=== PATIENT | male | born 1950 | race Caucasian/White ===

== ENCOUNTER 2018-07-23 09:25 | Emergency (ER) | payer MEDICARE, OTHER ==
[~2018-07-23] VITALS: Ht 172.7 cm; Wt 80.7 kg
[2018-07-23] MEDS ORDERED: TENORMIN25 MG PO (09:45)
[2018-07-23] MEDS ORDERED: AMLODIPINE BESY10 MG PO (09:46)
[2018-07-23] MEDS ORDERED: UNKNOWN EYE DROP (09:47)
[2018-07-23 10:12] VITALS: BP 123/67
== END 2018-07-23 10:13 | disposition home or self-care (01) ==
LOC: M.ERS 09:25
DX: S93.492A Sprain of other ligament of left ankle, initial encounter (principal); I10 Essential (primary) hypertension; E78.00 Pure hypercholesterolemia, unspecified; Z88.1 Allergy status to other antibiotic agents; Z88.8 Allergy status to other drugs, medicaments and biological substances; W18.39XA Other fall on same level, initial encounter; Y92.89 Other specified places as the place of occurrence of the external cause; Y93.89 Activity, other specified; Y99.8 Other external cause status

== ENCOUNTER 2018-11-25 08:20 | Emergency (ER) | payer MEDICARE, OTHER ==
[~2018-11-25] VITALS: Ht 172.7 cm; Wt 81.7 kg
[~2018-11-25 08:20] MED LIST: AMLODIPINE BESY10 MG PO; TENORMIN25 MG PO; UNKNOWN EYE DROP
[2018-11-25] MEDS ORDERED: LIPITOR10 MG PO (08:38)
[2018-11-25] MEDS ORDERED: HYDROCODONE-AP1 EAC6 PO (09:32)
[2018-11-25 10:05] VITALS: BP 173/76
[2018-11-29] MEDS ORDERED: XALATAN2.5 ML OPHTHALMIC (15:13)
== END 2018-11-25 10:06 | disposition home or self-care (01) ==
LOC: M.ERS 08:20
DX: S92.352A Displaced fracture of fifth metatarsal bone, left foot, initial encounter for closed fracture (principal); I10 Essential (primary) hypertension; E78.00 Pure hypercholesterolemia, unspecified; Z88.1 Allergy status to other antibiotic agents; Z88.8 Allergy status to other drugs, medicaments and biological substances; W22.8XXA Striking against or struck by other objects, initial encounter; Y92.89 Other specified places as the place of occurrence of the external cause; Y93.89 Activity, other specified; Y99.8 Other external cause status

== ENCOUNTER → 2018-12-01 | Day surgery (SDC) | payer MEDICARE, OTHER ==
[~2018-12-01] MED LIST changes: +HYDROCODONE-AP1 EAC6 PO; +LIPITOR10 MG PO; +XALATAN2.5 ML OPHTHALMIC
--- NOTE | ~2018-12-01 | OP ---
[address] [address] OPERATIVE REPORT Name: JUANROSALVA DELGADO Room: [facility]#: [id number] Admission: 12/01/18 Attend Phys: Blas Alejandro DPM Discharge: Date of : 46 Report #: [id number] THIS REPORT FOR: //name// CC: Joy Alejandro PREOPERATIVE DIAGNOSIS: Left fifth metatarsal fracture tuberosity, displaced. POSTOPERATIVE DIAGNOSIS: Left fifth metatarsal fracture tuberosity, displaced. PROCEDURE: ORIF left fifth metatarsal tuberosity. ANESTHESIA: General with a local block consisting of 18 mL of 0.5% Marcaine. TOURNIQUET: Thigh at 300. PROCEDURE IN DETAIL: The patient was transferred to operating room and placed on the operating room table in supine position. General anesthesia was administered. The left lower extremity was prepped and draped in the usual sterile manner. Tourniquet was inflated to 300 mmHg following exsanguination of the foot with Esmarch bandage. Attention was directed to the left foot where an incision was made along the lateral aspect of the fifth metatarsal tuberosity area, approximately 4 cm in length. The incision was deepened using sharp and blunt dissection, paying careful attention to retract all vital structures. Dissection was carried down to the fifth metatarsal where the fifth metatarsal tuberosity fracture was noted and displaced approximately 3-4 mm. I cleaned out the fracture fragment with a curette and [place] and lavaged it out and reduced it with a bone reduction clamp and temporarily fixed it with a guidewire. Then, I applied a [employer] hook plate, 2.4. Then, used AO fixation technique to apply the plate. Rigid fixation was noted and the C-arm was used to identify excellent alignment, which was noted. I then used [employer] AlloMatrix in the areas that still had some opening of the bone. Then, I lavaged it thoroughly before and after the bone graft. Closed with 3-0 Vicryl for deep tissue, 4-0 Vicryl for subcutaneous tissue and 3-0 nylon for approximating skin using a [place] [address] OPERATIVE REPORT Name: JUANROSALVA DELGADO Room: [facility]#: [id number] Admission: 12/01/18 Attend Phys: Blas Alejandro DPM Discharge: Date of : 46 Report #: [id number] dressed with Xeroform, fluffs, Adalberto, and an outer Coban wrap. The patient tolerated the procedure well and left the operating room in stable condition. Device intact. Tourniquet was released before the wound was closed and good hyperemic response to digits 1-5, moist and pink. The patient will follow up in my office in approximately 1 week. He will be nonweightbearing in the boot. 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 Range of motion of the knee is suggested every hour while he is awake. He will call if any concerns at all. By: [id number] Alejandro, AGUSTINA /nt
[2018-12-01 06:55] LABS: HEMATOCRIT 42.4 % (42.0-52.0); HEMOGLOBIN 14.1 gm/dL (14.0-18.0); MCH 27.2 pg (26.0-34.0); MCHC 33.3 g/dL (28.0-37.0); MCV 81.5 fL (80.0-100.0); MPV 8.2 fl. (7.2-11.1); RBC 5.2 mil/uL (4.50-6.00); RDW-CV 13.7 % (10.5-14.5); WBC 6.3 thou/uL (4.0-11.0)
[2018-12-01 07:02] LABS: CREATININE 1.2 mg/dL (0.6-1.3)
[2018-12-01 07:07] LABS: ALBUMIN 3.7 g/dL (3.4-5.0); TOTAL BILIRUBIN 0.5 mg/dL (<0.1-1.0); TOTAL PROTEIN 6.9 g/dL (6.4-8.2)
--- NOTE | 2018-12-01 10:27 | EKG ---
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
== END | disposition home or self-care (01) ==
LOC: M.SUR
PROVIDERS: Podiatrist Foot & Ankle Surgery
DX: S92.352A Displaced fracture of fifth metatarsal bone, left foot, initial encounter for closed fracture (principal); I10 Essential (primary) hypertension; E78.00 Pure hypercholesterolemia, unspecified; Z79.899 Other long term (current) drug therapy; Z88.8 Allergy status to other drugs, medicaments and biological substances; Z98.890 Other specified postprocedural states; X58.XXXA Exposure to other specified factors, initial encounter; Y93.89 Activity, other specified; Y92.89 Other specified places as the place of occurrence of the external cause; Y99.8 Other external cause status